=== PATIENT | female | born 1975 | race Caucasian/White ===

== ENCOUNTER 2019-06-03 12:51 | Emergency (ER) | payer OTHER ==
[~2019-06-03] VITALS: Ht 167.6 cm; Wt 72.6 kg
[2019-06-03 13:32] VITALS: Ht 167.6 cm; Wt 72.6 kg
[2019-06-03 14:15] VITALS: BP 119/81
== END 2019-06-03 14:15 | disposition home or self-care (01) ==
LOC: ED 12:51
DX: J06.9 Acute upper respiratory infection, unspecified (principal); Z20.828 Contact with and (suspected) exposure to other viral communicable diseases
CPT/HCPCS: 87804; Q0092; U0002